=== PATIENT | male | born 2000 | race Caucasian/White ===

== ENCOUNTER 2021-01-24 12:51 | Emergency (ER) | payer BC, SELFPAY ==
[2021-01-24 12:57] VITALS: BP 149/98; PULSE 126; RESP 16; TEMP 36.8; O2SAT 99
--- NOTE | 2021-01-24 13:51 | ED.SKABFB ---
HPI - Skin/Abscess/Foreign Bdy General Chief complaint: Skin/Abscess/Foreign Body Stated complaint: rash Time Seen by Provider: 01/24/21 13:41 Source: patient and RN notes reviewed Mode of arrival: ambulatory Limitations: no limitations History of Present Illness HPI narrative: Patient presents today complaining of a generalized pruritic rash that started yesterday that includes swelling in patient's hands and feet. Denies shortness of breath, difficulty swallowing, swelling in his face. He has been using calamine lotion and Benadryl without relief. States that he has been on a new prescription, Wellbutrin, for the last 2 to 3 weeks and was wondering if this was the cause of his rash. He has an appointment with his dog tomorrow. He did stop it yesterday. MD complaint: rash Related Data Home Medications Medication Instructions Recorded Confirmed Wellbutrin 01/24/21 Allergies Allergy/AdvReac Type Severity Reaction Status Date / Time Sulfa (Sulfonamide Allergy Unknown Verified 01/24/21 13:00 Antibiotics) Review of Systems Review of Systems: CONSTITUTIONAL: Denies body aches, fever, chills, or sweats. EYES: Denies visual changes, redness, or discharge. ENT: Denies rhinorrhea, congestion, sore throat, or otalgia. CARDIOVASCULAR: Denies chest pain, palpitations, or edema. RESPIRATORY: Denies cough or dyspnea. GASTROINTESTINAL: Denies abdominal pain, nausea, vomiting, or diarrhea. GENITOURINARY: Denies dysuria or hematuria. SKIN: Denies wounds.+ Rash, swelling of the hands and feet MUSCULOSKELETAL: Denies back pain, joint pain, or myalgia. NEUROLOGIC: Denies headache, numbness, tingling, or weakness. PSYCH: Denies depression or anxiety. [facility] Past Medical History Medical History (Updated 01/24/21 @ 13:55 by Sandra Pinedo, [facility], ) Depression Comments At time of signature, I have reviewed and agree with nursing past medical, surgical, social and family history unless otherwise noted. Please see nursing chart for further information. There is no relevant family history pertinent to the presenting complaint Exam Narrative: GENERAL: Well-appearing, well-nourished, and in no acute distress. HEAD: Normocephalic, atraumatic. EYES: EOMI. No redness or drainage. Conjunctivae normal. ENT: Mucous membranes pink and moist. Throat normal. Uvula midline. NECK: Normal AROM. Supple. No lymphadenopathy. CHEST: No respiratory distress. MUSCULOSKELETAL: No bony tenderness. EXTREMITIES: Normal range of motion. No edema. SKIN: Warm, dry. Capillary refill normal. Normal skin turgor. Urticarial rash over the abdomen, bilateral arms and legs. Mild swelling of the bilateral hands. NEURO: No focal deficits. Alert and oriented x3. Gait steady. PSYCH: Normal affect. No signs of depression or anxiety. Course Vital Signs Vital signs: Vital Signs Temperature 98.2 F 01/24/21 12:57 Pulse Rate 126 H 01/24/21 12:57 Respiratory Rate 16 01/24/21 12:57 Blood Pressure 149/98 H 01/24/21 12:57 Pulse Oximetry 99 01/24/21 12:57 Temperature 98.2 F 01/24/21 12:57 Pulse Rate 126 H 01/24/21 12:57 Respiratory Rate 16 01/24/21 12:57 Blood Pressure 149/98 H 01/24/21 12:57 Pulse Oximetry 99 01/24/21 12:57 Reviewed. Pt has been instructed to follow up with his PCP regarding his elevated blood pressure today. MDM - Skin/Abscess/Foreign Bdy Differential Diagnosis Differential diagnosis: Likely viral exanthem, urticaria, allergic reaction to drug and contact dermatitis Critical Care Time Critical Care Time Critical Care Time: No Discharge Plan Discharge Clinical Impression: Urticaria Patient Disposition: Home, Self-Care Condition: Stable Instructions: Urticaria (ED) Additional Instructions: Take the prednisone as prescribed. Continue Benadryl for itching. Follow-up with your doctor tomorrow regarding your Wellbutrin. If you develop shortness of breath or difficulty swallowin
== END 2021-01-24 14:00 | disposition home or self-care (01) ==
PROVIDERS: Emergency Provider Nurse Practitioner
DX: L50.9 Urticaria, unspecified (principal); F32.A Depression, unspecified
CPT/HCPCS: 99213; G0463